=== PATIENT | male | born 1955 | race Caucasian/White ===

== ENCOUNTER 2019-08-05 08:03 | Outpatient (CLI) | payer OTHER, SELFPAY ==
--- NOTE | 2019-08-05 08:33 | MR_ITS ---
WS: [id number] MRI BRAIN WITHOUT CONTRAST HISTORY: NEW ONSET HEADACHES COMPARISON: None available. TECHNIQUE: Diffusion imaging, multiplanar T1, T2 and FLAIR imaging obtained. No evidence for acute infarct or hemorrhage. Nassar-white matter differentiation is normal. Mild cerebr al atrophy. No significant chronic microvascular ischemic disease. No remote or acute infarcts are volume loss. Ventricles and extra-axial spaces are normal. No inferior displacement of cerebellar tonsils. The sella turcica and pituitary gland are unremarkabl e. Posterior fossa is also unremarkable. Dural venous sinuses and [place] demonstrate no abnormality on this unenhanced studies. Paranasal sinuses: Clear. Mastoid air cells: Moderate effusion in the RIGHT mastoid air cells. Calvarium and scalp: Intact. MR/MR head wo con* [id number] IMPRESSION: 1. No significant chronic microvascular ischemic disease or acute infarct. 2. Moderate RIGHT mastoid air cell effusions.
== END 2019-08-05 08:04 | disposition home or self-care (01) ==
PROVIDERS: Family Provider Internal Medicine; PCP Internal Medicine; Visit Provider Internal Medicine
DX: R51 Headache (principal)
CPT/HCPCS: 70551

== ENCOUNTER → 2022-02-25 14:59 | Outpatient (BNVA) | payer OTHER, SELFPAY | PROVIDERS: PCP Internal Medicine; Visit Provider Nurse Practitioner Family | DX: R05.9 Cough, unspecified (principal) | CPT/HCPCS: 87400 ==

== ENCOUNTER → 2024-03-23 10:06 | Outpatient (BNVA) | payer OTHER, SELFPAY | PROVIDERS: PCP Internal Medicine; Visit Provider Nurse Practitioner | DX: I10 Essential (primary) hypertension (principal); E78.2 Mixed hyperlipidemia; E55.9 Vitamin D deficiency, unspecified | CPT/HCPCS: 80053; 80061; 82306; 85025 ==

== ENCOUNTER 2024-03-31 12:36 | Outpatient (CLI) | payer MEDICARE, OTHER, SELFPAY ==
--- NOTE | 2024-03-31 13:00 | USCV_ITS ---
Waldemar, Max Age: 68 Gender: M : 1955 Exam Date: 03/31/2024 12:43 Ordering Phys: Ceci Domingo Technologist: SARAH Exam Location: [facility] – [place] Indication: bruit Risk Factors: Previous Vascular Surgery: Right Brachial BP: / Left Brachial BP: / Right Left Velocity (cm/s) Spectral Plaque Velocity (cm/s) Spectral Plaque Syst/Diast Broadening Syst/Diast Broadening 71.10/ 14.10 Prox CCA 61.80 / 19.00 65.40/ 15.60 Mid CCA 76.20 / 21.70 63.70/ 17.50 Distal CCA 58.70 / 21.00 67.70/ 21.20 Prox ICA 71.80 / 27.00 59.80/ 21.90 Mid ICA 64.80 / 20.50 67.10/ 25.40 Distal ICA 46.50 / 18.90 73.40 ECA 133.90 1.10 ICA/CCA 1.20 Antegrade Vertebral Antegrade 41.60/ 13.90 cm/s 46.30/ 11.70 cm/s Tri Subclavian Tri 173.3 91.20 0 CONCLUSIONS Right ICA stenosis <50%. Moderate bulky calcified atheromatous plaque right carotid bulb/ICA. Left ICA stenosis <50%. Moderate bulky calcified atheromatous plaque left carotid bulb/ICA. Intimal thickening in the common carotid arteries and internal carotid arteries bilaterally. Normal antegrade Doppler flow noted in the right vertebral artery. Normal antegrade Doppler flow noted in the left vertebral artery. José Richardson MD (Electronically Signed) Final Date: 31 March 2024 16:22 S
== END 2024-03-31 12:37 | disposition home or self-care (01) ==
LOC: RAD 12:37
PROVIDERS: PCP Nurse Practitioner; Visit Provider Nurse Practitioner
DX: R09.89 Other specified symptoms and signs involving the circulatory and respiratory systems (principal); E78.2 Mixed hyperlipidemia; I65.23 Occlusion and stenosis of bilateral carotid arteries; R93.89 Abnormal findings on diagnostic imaging of other specified body structures
CPT/HCPCS: 93880

== ENCOUNTER → 2024-08-17 09:14 | Outpatient (BNVA) | payer MEDICARE, OTHER, SELFPAY | PROVIDERS: PCP Nurse Practitioner; Visit Provider Nurse Practitioner | DX: I10 Essential (primary) hypertension (principal); E78.2 Mixed hyperlipidemia; E55.9 Vitamin D deficiency, unspecified; Z12.5 Encounter for screening for malignant neoplasm of prostate | CPT/HCPCS: 80053; 80061; 82306; 83735; G0103 ==

== ENCOUNTER → 2024-08-23 08:58 | Outpatient (BNVA) | payer MEDICARE, OTHER, SELFPAY | PROVIDERS: PCP Nurse Practitioner; Visit Provider Nurse Practitioner | DX: M25.511 Pain in right shoulder (principal); M25.512 Pain in left shoulder | CPT/HCPCS: 73030 ==

== ENCOUNTER 2024-10-03 09:31 | Outpatient (CLI) | payer MEDICARE, OTHER, SELFPAY ==
--- NOTE | 2024-10-03 10:00 | CT_ITS ---
WS: [id number] LDCT LUNG CANCER SCREENING HISTORY: F17.210 - Nicotine dependence, cigarettes, uncomplicated TECHNIQUE: Axial imaging performed from the apices to 1 cm below the costophrenic angles. Coronal and sagittal reformats are submitted with axial MIP series. All CT scans at [facility] use at least one of these dose optimization techniques: automated exposure control; mA and/or kV adjustment per patient size (includes targeted exams where dose is matched to clinical indication); or iterative reconstruction. DLP: 55.31 mGy.cm DIvol: Mean CTDIvol: 0.90 (mGy) COMPARISON: 11/25/2007 Diagnostic quality: Satisfactory Lungs: Moderate pulmonary hyperexpansion. Numerous benign calcified granulomata. Mild biapical pleural scarring, greatest at the RIGHT apex. Heart: Normal size heart with no pericardial effusion.. Extensive coronary artery calcifications. Calcifications extend into the LEFT main coronary artery. Other findings: Gynecomastia. Mild atherosclerosis aorta. Normal size pulmonary artery. No adenopathy. Small hiatal hernia. No adrenal mass. Suprarenal aortic calcifications. Thoracic spondylosis. CT/CT lung screening [id number] IMPRESSION: LUNG-RADS: 2S-Benign Appearance or Behavior with Significant Findings FOLLOW UP: 12 Month: Continue annual screening with LDCT OTHER FINDINGS (S MODIFIER): Extensive coronary artery calcifications. Calcific ations extend into the LEFT main coronary artery. Consider evaluation by cardio logy.
== END 2024-10-03 09:32 | disposition home or self-care (01) ==
LOC: RAD 09:31
PROVIDERS: PCP Nurse Practitioner; Visit Provider Nurse Practitioner
DX: Z12.2 Encounter for screening for malignant neoplasm of respiratory organs (principal); F17.210 Nicotine dependence, cigarettes, uncomplicated; J98.4 Other disorders of lung; J84.10 Pulmonary fibrosis, unspecified; J92.9 Pleural plaque without asbestos; I25.10 Atherosclerotic heart disease of native coronary artery without angina pectoris; I70.0 Atherosclerosis of aorta; N62 Hypertrophy of breast; K44.9 Diaphragmatic hernia without obstruction or gangrene; M47.814 Spondylosis without myelopathy or radiculopathy, thoracic region; I35.8 Other nonrheumatic aortic valve disorders
CPT/HCPCS: 71271

== ENCOUNTER → 2024-11-23 12:41 | Outpatient (BNVA) | payer MEDICARE, OTHER, SELFPAY | PROVIDERS: PCP Nurse Practitioner; Visit Provider Internal Medicine Cardiovascular Disease | DX: I25.10 Atherosclerotic heart disease of native coronary artery without angina pectoris (principal); R00.1 Bradycardia, unspecified; I10 Essential (primary) hypertension; E78.2 Mixed hyperlipidemia; F17.210 Nicotine dependence, cigarettes, uncomplicated | CPT/HCPCS: 93005; 99204 ==

== ENCOUNTER 2025-01-31 06:52 | Outpatient (CLI) | payer MEDICARE, OTHER, SELFPAY ==
[2025-01-31] VITALS (18 sets, daily range): BP systolic 104–146; BP diastolic 63–82; PULSE 53–65; RESP 11–17; TEMP 36.4; O2SAT 95–98; BMI 23.3
[2025-01-31 07:16] LABS: Hematocrit 40.6 % (37-53); Hemoglobin 13.60 g/dL (11.27-16.99); Mean Corpuscular HGB Conc 33.5 g/dL (30-55); Mean Corpuscular Hemoglobin 29.9 pg (27-33); Mean Corpuscular Volume 89.2 fl (82-101); Nucleated Red Blood Cells % 0 %; Platelet Count 215 10^3/cmm (157-399); Red Blood Count 4.55 10^6/uL (3.85-5.65); White Blood Count 7.58 10^3/uL (3.29-11.43)
[2025-01-31 07:33] LABS: Anion Gap 14.8 (5-19); Blood Urea Nitrogen 11 mg/dL (8-23); Calcium 9.4 mg/dL (8.5-10.5); Carbon Dioxide 25 mmol/L (22-29); Chloride 101 mmol/L (98-107); Glucose 104 mg/dL (65-115); Osmolality Calculated 284 mOsm/kg (285-295); Potassium 3.8 mmol/L (3.5-5.1); Sodium 137 mmol/L (136-145)
--- NOTE | 2025-01-31 08:00 | SUR.PREOP ---
MD NOTIFICATION MD made aware of today's creatnine value at 1.4. Verbal orders to give 250 ml bolus pre procedure. Noted. Bolus given as ordered. Infusing without difficulty.
--- NOTE | 2025-01-31 08:27 | W.PM.OPSFHP ---
Same Day Surgery H&P Indication for Procedure/HPI DATE OF PROCEDURE: January 31, 2025 CHIEF COMPLAINT/INDICATIONFOR SURGICAL PROCEDURE: Chest pain/abnormal coronary CTA PREOP DIAGNOSIS: Chest pain/abnormal coronary CTA PLANNED PROCEDURE: Operation Date: 01/31/25 08:30 Proposed Procedures p Cardiac Catheterization(Left) - Padmaja Godinez MD 69-year-old male past medical history significant for hypertension hyperlipidemia noted to have coronary calcium on the random CT of the chest, patient was referred to us in October. Patient was complaining of worsening of shortness of breath and chest pressure upon [id number] exertion it is the reason coronary calcium score was ordered he was noted to have 489 calcium score in LAD, 350 or more in the RCA and 103 in circumflex, given his symptoms and heavy calcium score it was thought that patient has moderate to high plaque burden especially in the LAD and RCA territory. It is the reason patient was scheduled for left heart cath/PCI if indicated today. Medications/Allergies* Home Medications ?Medication ?Instructions ?Recorded ?Confirmed ?Type bimatoprost 0.01 % eye drops 1 drp ophthalmic (eye) DAILY 02/25/22 01/30/25 History (Lumigan) brimonidine 0.2 %-timolol 0.5 % 1 drp ophthalmic (eye) BID 02/25/22 01/30/25 History eye drops (Combigan) cholecalciferol (vitamin D3) 125 125 mcg PO BID 08/17/24 01/30/25 History mcg (5,000 unit) capsule guaifenesin 600 mg tablet, 600 mg PO BID PRN Cough 11/23/24 01/30/25 History extended release 12 hr (Mucinex) Allergies/Adverse Reactions Allergy/AdvReac Type Severity Reaction Status Date / Time amoxicillin Allergy ADR-Itching Verified 01/31/25 07:22 Current Medications: Generic Name Dose Route Start Last Admin Trade Name Freq PRN Reason Stop Dose Admin Sodium Chloride 1,000 mls @ 50 mls/hr 01/31/25 07:30 01/31/25 07:29 Sodium Chloride 0.9% IV 02/01/25 03:29 Not Given .Q20H ONE Pertinent History/Comorbid Conditions* Medical History (Updated 11/24/24 @ 10:08 by Deyanira Majano) CAD (coronary atherosclerotic disease) GERD (gastroesophageal reflux disease) Glaucoma BPH (benign prostatic hyperplasia) Hyperlipidemia, mixed Essential hypertension Surgical History (Updated 03/23/24 @ 10:01 by JUDE Ramirez) History of colonoscopy Had 2 last 2021 History of lumbar fusion L4-5 rods August, Family History (Updated 03/23/24 @ 09:59 by JUDE Ramirez) Cancer Father Lung Social History Smoking and tobacco/nicotine status: current every day tobacco/nicotine user cigarettes Second hand smoke exposure: No Alcohol intake: never Substance/Drug Use: never Adopted: No Caregiver/support person: No Lives independently: Yes Household members: family Housing: House Marital status: Number of children: 2 service: No Current occupational status: employed Pets and animals: No Pertinent Exam Findings alert, oriented x 3, clear to auscultation bilaterally, regular rate & rhythm, operative site marked and procedure specific exam findings Conscious Sedation Assessment PATIENT ASSESSED PRIOR TO SEDATION, WITH NO CHANGE NOTED: Yes AIRWAY EVAL/ANESTHESIA PLAN: ASA II and Patient agrees to continue as planned Recommendations Other Other Plans: Proceed with left heart cath/PCI if indicated. Patient has been explained all risk-benefit and alternative for the procedure. He clearly understand 2% risk of stroke major bleed. He understand 5% risk of contrast-induced nephropathy leading to temporary or permanent renal failure, bleeding hematoma urgent or emergent vascular bypass surgery. He agrees to it and would like to proceed with it Coding Level of Care Code Acute Code for Chg Jermaine
--- NOTE | 2025-01-31 08:30 | XACV_ITS ---
Exam Room: 2 Ht: 180 cm Wt: 76 kg BSA: 1.95 m2 Gender: Male : 1955 Any Known Allergies: Other Exam Priority: Routine Procedure(s): Procedure Description: Diagnostic procedure Procedure Description: Left Heart Catheterization Procedure Description: Left ventriculography Procedure Description: Coronary IVUS Procedure Description: Miscellaneous Procedure Description: ACT Procedure Description: Coronary Angiography Procedure Description: Pressure Wire Herbert COLLINS; Diagnostic Cath Status: Elective Diagnostic Findings * Indication for the left heart cath: Angina/abnormal CT coronary calcium score#1 Left main has ostial 60 to 70% and distal 60% stenosis, IVUS was performed which showed 4.8 mm2 MLA in the ostial and 6.2 mm2 MLA of the distal left main thought to be significant#2 LAD has luminal 80% stenosis#3 Left circumflex is a nondominant vessel but moderate size and caliber without significant stenosis#4 Right coronary artery: Dominant moderate size and caliber vessel with proximal 50% stenosis not significant by IFR 0.96. * Circumflex has no disease. * Left Main: obstructive 70% stenosis, PATRICIO: 3 flow, IVUS performed. * Left Main: obstructive 60% stenosis, PATRICIO: 3 flow, IVUS performed. * Mid Left Anterior Descending: significant 80% stenosis, PATRICIO: 3 flow. * Proximal Right Coronary Artery: moderate 50% stenosis, PATRICIO: 3 flow, iFR performed: ratio is 0.96. * Coronary angiography shows right dominance. Conclusions 1. There is significant coronary artery disease with three vessel disease. 2. All zaragoza are normal. 3. Normal left ventricular systolic function. Ejection fraction of 55%. Recommendations * 1-Return to recovery for close monitoring and routine cath care 2-Continue home med 3-No Plavix for possible CABG 4-Statin with LDL goal of 70 mg/dl, aspirin 81 mg p.o. daily for life long 5-CT surgery consults for CABG 6-Optimal medical management for CT 7-Follow up with Dr. Godinez in four weeks and establish care with primary care physician. Diagnostic RX Recommendation: CABG Ventriculography Ejection Fraction: 55.0 % Pressures Phase:Rest AO : 107 / 61 ( 80 ) @ 8:44:00 AM 86 / 56 ( 69 ) @ 8:45:00 AM 111 / 61 ( 81 ) @ 8:58:00 AM 109 / 56 ( 79 ) @ 9:23:00 AM 110 / 56 ( 79 ) @ 9:23:00 AM LV : 107 / -7 / 7 @ 9:21:00 AM 116 / -7 / 11 @ 9:22:00 AM 115 / -8 / 11 @ 9:23:00 AM Valves Phase:DefaultPhase AV : 6.0 @ 9:27:45 AM AV Mean Gradient: 9.0 @ 9:27:45 AM Clinical Evaluation EBL: 5mL-10mL Procedural Details Procedure Consent Obtained. Admit Source: Out Patient. Pre-Procedure Time Out. Identified patient by full name and date of as verbalized by the patient/guarantor. Does the consent match the physician's order: Yes. Accurate & Complete Informed Consent: Yes. Inpatient/Outpatient History & Physical on Chart: Yes. If H&P is completed, is and addenduem needed: No; If yes, is the addendum complete: N/A. Visualize and Verify Site with Patient/Guarantor: N/A. Relevant Radiology Images available: No. The risks, benefits, and alternatives of sedation and/or procedure were discussed by physician. The patient agrees to continue. Procedure started. [facility] Clinical Fraility Score: 3: Managing Well. Engine Pilot Indications: Other. Abnormal coronary CTA, Chest pain. Chest Pain Symptom Assessment: Typical Angina Symptoms. Correct patient, site and procedure confirmed by cath team. Current diagnosis: Chest Pain. PERRLA. 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 Lungs clear x 5 lobes. IV Site on Arrival: 20 gauge in the right anticubital. IV Fluids: 0.9% NaCl at KVO. 250 mL infused prior to cytogenetics laboratory manager. Pre Procedural Pulses: bilateral dorsalis pedis was 3+. Pre Procedural Pulses: bilateral posterior tibial was 3+. Pre Procedural Pulses: bilateral radial was 3+. Oxygen started at 2liters/min via nasal canula. right radial was prepped with chloroprep then draped in the usual sterile fashion. right groin was prepped with chloroprep then draped in the usual sterile fashion. Physician notified. Baseline sample Acquired. HR: 75 BPM. Physician arrived. Physician scrubbed in. Immediate Pre-Procedure Time Out. Correct Patient: Yes; Correct Procedure: Yes; Correct Site: Yes; Correct Patient Position: Yes; Correct Supplies: Yes; Dried Flammable Prep: Yes; Blood Products Available: No;. Lidocaine 1% infiltrated to the right radial. Arterial access obtained. A 5 kazakh Abraham catheter in over wire. Multiple views taken of left coronary artery. Catheter redirected to the RCA. Multiple views taken of right coronary artery. Catheter removed over the exchange wire. 6 kazakh JR 4 guide catheter was inserted over the wire. Add inventory: Co-commercial airplane pilot, Endoflator. ACT drawn. Results 233 seconds. Therapeutic limits - pre-heparin administration 90-150 seconds and monitoring heparin during a vascular procedure >250 seconds. iFR pressure wire advanced through guide catheter to lesion in proximal RCA. iFR pressure wire advanced acrossed lesion. iFR proximal RCA 0.95mmHg. iFR wire out. Angiography performed of RCA. Guide catheter out. 6 kazakh JL 4 SH guide catheter was inserted over the wire. Runthrough guidewire was advanced through the guide catheter to lesion in the distal left main and mid LAD. Guidewire advanced across lesions, seated in distal LAD. IVUS catheter in over wire. IVUS performed of distal and ostial left main. Area of ostial left main measures 4.8mm. Area of distal left main measures 6.2mm. IVUS and wire out. Guide catheter out. A 5 kazakh Angled Pig catheter in over wire. EDP Sample taken: LV 107/-8,7; HR: 68 BPM; SpO2: 94%. LV gram performed in ANGELA @ 10 mL/second for a total of 30 mL. EDP Sample taken: LV 116/-8,11; HR: 72 BPM; SpO2: 97%. Pullback taken: LV 115/-9,11; AO 109/56(79); Mean: 9mmHg, Peak to Peak: 6mmHg, SEP: 18sec/min; HR: 72 BPM; SpO2: 97%. Catheter removed over the exchange wire. A TR Band was successful obtaining hemostatsis at the Right Radial artery insertion site. Physician scrubbed out. Post Procedure: Pulses reassessed and unchanged. PERRLA. 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 No VTE prophylaxis required. Medication's Wasted: Lidocaine 1% = 18 mL. Medication's Wasted: Nitro = 49.8 mg. Medication's Wasted: Heparin = 3000 units. Total IV fluids: 100 mL. Post-op diagnosis: Significant muli-vessel CAD. Complications: None. Estimated blood loss: 5mL-10mL. Responsiveness - Normal response to verbal stimuli; alert and oriented, PERRLA. Airway - Unaffected, no intervention required; spontaneous ventilation. Circulation: W/N/L, pulses unchanged. Nausea/Vomiting: No. Procedure completed. Patient transferred by wheelchair to CPRU. Vital chart was stopped. Access Site Site: Right Radial artery Sheath Size: 6 Fr Hemostasis Method: TR Band Hemostasis Success: Successful Procedure Medications Start: 8:35 AM Stop: 8:35 AM Medication: Versed Amount: 1 mg Route: I.V. Start: 8:35 AM Stop: 8:35 AM Medication: Fentanyl Amount: 50 mcg Route: I.V. Start: 8:42 AM Stop: 8:42 AM Medication: Nitrogylcerin Amount: 200 mcg Route: I.A. Start: 8:42 AM Stop: 8:42 AM Medication: Versed Amount: 1 mg Route: I.V. Start: 8:42 AM Stop: 8:42 AM Medication: Heparin Amount: 5000 units Route: I.V. Start: 9:01 AM Stop: 9:01 AM Medication: Heparin Amount: 3000 units Route: I.V. Start: 9:13 AM Stop: 9:13 AM Medication: Versed Amount: 1 mg Route: I.V. I, the attending physician, have reviewed and verified all procedure medications. Yes, all medications given per verbal order History/Risk Factors Hypertension: Yes Dyslipidemia: Yes Peripheral Arterial Disease (PAD): No Myocardial Infarction (CT): No Obesity: No Renal Disease: No Tobacco Use: Current/Recent(w/in 1 year) Prior Interventions PCI: No CABG: No Valve Surgery: No Report Signatures Finalized by Padmaja Godinez MD on 01/31/2025 11:09 AM
--- NOTE | 2025-01-31 09:30 | SUR.PHASEII ---
POST CATH FLUIDS IV fluids set at 150 ml/hr per verbal order from Dr Godinez. Infusing as ordered.
== END 2025-01-31 13:35 | disposition home or self-care (01) ==
PROVIDERS: PCP Nurse Practitioner; Visit Provider Internal Medicine Cardiovascular Disease
DX: I25.118 Atherosclerotic heart disease of native coronary artery with other forms of angina pectoris (principal); I10 Essential (primary) hypertension; E78.2 Mixed hyperlipidemia; K21.9 Gastro-esophageal reflux disease without esophagitis; F17.210 Nicotine dependence, cigarettes, uncomplicated
CPT/HCPCS: 36415; 80048; 85025; 85347; 92978; 93458; 93571; 99152; 99153; C1753; C1769; C1887; C1894; J1644; J2250; J3010; J3490; J7030; J9999; Q0163; Q9967

== ENCOUNTER 2025-02-09 05:47 | Outpatient (CLI) | payer MEDICARE, OTHER, SELFPAY ==
--- NOTE | 2025-02-09 06:15 | USCV_ITS ---
Waldemar, Max Age: 69 Gender: M : 1955 Exam Date: 02/09/2025 06:25 Ordering Phys: Chaya Otto NP Technologist: IMER [place] [facility] [place]: CP BP: 118 / 62 HR: 59 Rhythm: Sinus Technical Quality: Adequate MEASUREMENTS (Male / Female) Normal Values 2D ECHO LV Diastolic Diameter PLAX 4.7 cm 4.2 - 5.9 / 3.9 - 5.3 cm IVS Diastolic Thickness 0.7 cm 0.6 - 1.0 / 0.6 - 0.9 cm IVS Systolic Thickness 0.9 cm LVPW Diastolic Thickness 0.9 cm 0.6 - 1.0 / 0.6 - 0.9 cm LVPW Systolic Thickness 0.9 cm LVOT Diameter 2.2 cm LV Ejection Fraction 2D Teich 42.5 % LV Ejection Fraction MOD 4C 64.2 % LV Ejection Fraction MOD 2C 57.6 % LV Ejection Fraction 2C AL 62.5 % LA Diameter 2.4 cm RA Systolic Volume 4C AL 38.3 ml RA Systolic Volume 4C MOD 36.5 ml LA Sys Volume AL 27.4 cm cubed LA Sys Volume Index AL 14.0 cm cubed/m squared Aorta at Sinotubular Diameter 2.7 cm IVC Diameter 1.1 cm M-MODE LA Ao Ratio MM 1.0 AV Cusp Separation MM 1.0 cm DOPPLER AV Peak Velocity 120.0 cm/s LVOT Peak Velocity 73.0 cm/s AV Area Cont Eq vti 2.7 cm squared AV Area Cont Eq pk 2.3 cm squared MV Peak Velocity 88.0 cm/s MV Area PHT 2.9 cm squared Mitral E to A Ratio 0.6 TR Peak Velocity 98.0 cm/s TR Peak Gradient 3.8 mmHg TV Peak E Velocity 56.0 cm/s PV Peak Velocity 82.0 cm/s FINDINGS Left Ventricle Normal left ventricular size, systolic function and wall thickness, with no regional wall motion abnormalities. Left ventricular ejection fraction is estimated at 60 %. Grade I/IV diastolic dysfunction (abnormal relaxation filling pattern), normal to mildly elevated filling pressures. Right Ventricle Normal right ventricular size and systolic function. Right Atrium Normal right atrial size. Left Atrium Normal left atrial size. IA Septum Normal appearance of the interatrial septum. Mitral Valve Mildly thickened mitral valve. No mitral valve stenosis. Trace mitral valve regurgitation. Aortic Valve Moderate aortic valve calcification. Mild aortic valve stenosis, mean gradient 2.5 mmHg, LUIS 2.7 cm squared. Trace aortic valve regurgitation. Tricuspid Valve Trace tricuspid valve regurgitation. Pulmonic Valve Normal pulmonic valve structure. No pulmonic valve stenosis or regurgitation. Pericardium No pericardial effusion. Aorta Normal diameter of the aortic root and ascending thoracic aorta. IVC Normal IVC diameter. CONCLUSIONS Normal left ventricular size, systolic function and wall thickness, with no regional wall motion abnormalities. Left ventricular ejection fraction is estimated at 60 %. Grade I/IV diastolic dysfunction (abnormal relaxation filling pattern), normal to mildly elevated filling pressures. Moderate aortic valve calcification. Mild aortic valve stenosis, mean gradient 2.5 mmHg, LUIS 2.7 cm squared. Trace aortic valve regurgitation. Trace tricuspid valve regurgitation. There is no pericardial effusion. Right atrial pressure is around 5 mm of mercury. Padmaja Godinez MD (Electronically Signed) Final Date: 12 February 2025 15:07 S
== END 2025-02-09 05:48 | disposition home or self-care (01) ==
LOC: RAD 05:48
PROVIDERS: PCP Nurse Practitioner; Visit Provider Nurse Practitioner Family
DX: I25.118 Atherosclerotic heart disease of native coronary artery with other forms of angina pectoris (principal); R07.9 Chest pain, unspecified; F17.220 Nicotine dependence, chewing tobacco, uncomplicated; I08.2 Rheumatic disorders of both aortic and tricuspid valves
CPT/HCPCS: 93306; 99214

== ENCOUNTER → 2025-02-15 15:33 | Outpatient (BNVA) | payer MEDICARE, OTHER, SELFPAY | PROVIDERS: PCP Nurse Practitioner; Visit Provider Clinical Nurse Specialist Adult Health | DX: J06.9 Acute upper respiratory infection, unspecified (principal) | CPT/HCPCS: 87400 ==